=== PATIENT | male | born 1970 | race Caucasian/White ===

== ENCOUNTER 2018-12-24 18:43 | Observation (INO) | payer BC ==
[~2018-12-24] VITALS: Ht 188 cm; Wt 120.2 kg
--- OUTSIDE RECORDS SUMMARY | 2018-12-24 18:52 | XMS REPORT ---
Author Author [facility] Address Unknown Phone Unavailable Care Team Providers Care Hat And Cap Opener Name Role Phone Unavailable Unavailable Payers Payer Name Policy Type Policy Number Effective Date Expiration Date Problems This patient has no known problems. Allergies, Adverse Reactions, Alerts Allergy Name Allergy Type Status Severity Reaction(s) Onset Date Inactive Date Treating Clinician Comments No Known Allergies DA Active U 2016-03-13 00:00:00 Medications This patient has no known medications.
--- OUTSIDE RECORDS SUMMARY | 2018-12-24 18:52 | XMS REPORT | Clinical Summary ---
Author Author [facility] Organization [facility] Address Unknown Phone Unavailable Care Team Providers Care Electrical Line Worker Name Role Phone Johnnie Hernandez MD PCP Unavailable Allergies No Known Allergies Medications End Date Status Medication Sig Dispensed Refills Start Date Active HYDROmorphone (DILAUDID) Take 1 mg by 0 2 MG tablet mouth every 4 (four) hours as needed for Pain. Active Problems Problem Noted Date Hypertension 03/16/2016 Renal mass, left 03/14/2016 Family History Medical History Relation Name Comments Heart disease Paternal Grandfather Relation Name Status Comments Paternal Grandfather Social History Date Tobacco Use Types Packs/Day Years Used Never Smoker Smokeless Tobacco: Never Used Alcohol Use Drinks/Week oz/Week Comments Yes 6 Cans of 3.6 beer Sex Assigned at Date Recorded Not on file Industry Job Start Date Occupation Not on file Not on file Not on file Travel End Travel History Travel Start No recent travel history available. Last Filed Vital Signs Not on file Plan of Treatment Not on file Results Not on fileafter 12/23/2017 Insurance Payer Benefit Subscriber ID Type Phone Address Plan / Group [employer] xxxxxxxxxxxx PPO [phone] [address] POS/PPO/[place] [address] O Advance Directives For more information, please contact: [facility] [address] [place] [address] Date Inactivated Comments Code Status Date Activated 03/21/2016 3:13 PM Full Code 03/14/2016 11:51 PM This code status was determined by: Patient
[2018-12-24] MEDS ORDERED: SODIUM CHLORIDE 0.9% 1000ML 1,000 ML IV STA (19:22)
[2018-12-24 19:50] LABS: BASOPHILS # (AUTO) 0.1 (0.0-0.1); BASOPHILS % 0.7 % (0.0-1.0); EOSINOPHILS # (AUTO) 0.3 (0.0-0.4); EOSINOPHILS % 2.3 % (0.0-6.0); HEMATOCRIT 43.1 % (38.2-49.6); HEMOGLOBIN 15.2 g/dL (14.0-18.0); LYMPHOCYTES # (AUTO) 1.5 (1.0-3.2); LYMPHOCYTES % 13.1 % (18.0-39.1); MEAN CORPUSCULAR HEMOGLOBIN 30.9 pg (28-32); MEAN CORPUSCULAR HGB CONC 35.3 g/dL (31-35); MEAN CORPUSCULAR VOLUME 87.6 fL (81-99); MONOCYTES % 8.7 % (4.4-11.3); NEUTROPHILS # (AUTO) 8.6 (2.1-6.9); NEUTROPHILS % 74.8 % (38.7-80.0); PLATELET COUNT 206 x10e3/uL (140-360); RED BLOOD COUNT 4.92 x10e6/uL (4.3-5.7)
[2018-12-24 20:00] LABS: INR 1.02; PROTHROMBIN TIME 13.9 seconds (11.9-14.5)
[2018-12-24] MEDS ORDERED: ASPIRIN 81 MG CHEW TAB PO ONE (20:00)
[2018-12-24] MEDS ORDERED: LIDOCAINE VISC 2% SOLN 15 ML UDC PO ONE (20:00)
[2018-12-24] MEDS ORDERED: MAGNESIUM/ALUMINUM/SIMETHICONE 30 ML UDC PO ONE (20:00)
[2018-12-24] MEDS ORDERED: ONDANSETRON HCL INJ 2MG/ML 2ML 2 MG/ML VIAL IV ONE (20:00)
[2018-12-24 20:01] LABS: PARTIAL THROMBOPLASTIN TIME 34.7 seconds (23.8-35.5)
[2018-12-24 20:10] LABS: ALBUMIN/GLOBULIN RATIO 1.4 (0.8-2.0); ANION GAP 14.9 mmol/L (8-16); CALCIUM 9.7 mg/dL (8.4-10.2); CREATININE, SERUM 1.48 mg/dL (0.72-1.25); POTASSIUM 3.9 mmol/L (3.5-5.1)
[2018-12-24 20:17] LABS: CREATINE KINASE MB 1.1 ng/mL (0-5.0)
--- NOTE | 2018-12-24 20:30 | Diagnostic Imaging Report ---
Examination: Single AP view of the chest. COMPARISON: None. INDICATION: Chest pain DISCUSSION: Lines/tubes: None. Lungs: Lung volumes are low. No consolidation, pleural effusion, or pneumothorax. Pleura: There is no pleural effusion or pneumothorax. Heart and mediastinum: Cardiomediastinal contour and pulmonary vasculature are within normal limits for technique. Bones and soft tissues: No acute bony abnormalities. IMPRESSION: 1. No acute cardiopulmonary abnormalities. Signed by: Dr. Herminio Ley M.D. on 12/24/2018 8:27 PM
[2018-12-24] MEDS: BELLADONNA ALK/PHENOBARBITAL 5 ML UDC PO SCH (20:33)
--- NOTE | 2018-12-24 20:48 | Diagnostic Imaging Report ---
EXAMINATION: Right upper quadrant ultrasound CLINICAL INDICATION: Vomiting, right upper quadrant pain COMPARISON: None DISCUSSION: Transverse and longitudinal images of the right upper quadrant were obtained. The liver is increased in size measuring 17.5centimeters in length in the right midclavicular line and shows normal echogenicity. No focal masses are seen in the liver. There is no intrahepatic biliary dilatation. The common bile duct is normal in caliber, measuring 0.4 cm. the main portal vein is normal in caliber and measures 0.8 cm with normal hepatopetal flow. An echogenic, shadowing calculus is lodged in the gallbladder neck. Echogenic sludge throughout the body and fundus. The wall is thickened, measuring 0.6 cm, and the gallbladder itself is hydropic. Sonographic Rust sign is positive. The pancreas is obscured by overlying bowel gas. The right kidney measures 12.9 centimeters in length. There is normal renal cortical echogenicity and no hydronephrosis, mass or shadowing calculi. Abdominal aorta is nonaneurysmal. IVC is poorly visualized. No free fluid is seen. IMPRESSION: Cholelithiasis with sonographic findings compatible with acute cholecystitis in the setting of gallbladder hydrops. Signed by: Dr. Herminio Ley M.D. on 12/24/2018 8:44 PM
[2018-12-24] MEDS ORDERED: ONDANSETRON HCL INJ 2MG/ML 2ML 2 MG/ML VIAL IV STA (20:59)
[2018-12-24] MEDS ORDERED: MORPHINE SULFATE INJ 4 MG/ML INJ 1ML IV STA (20:59)
[2018-12-24] MEDS ORDERED: CEFTRIAXONE SOD 1 GM VIAL IV ONE (21:00)
[2018-12-24] MEDS ORDERED: SODIUM CHLORIDE 0.9% 1000ML 1,000 ML ONE (21:26)
[2018-12-24] MEDS ORDERED: SODIUM CHLORIDE 0.9% 50ML 50 ML ONE (21:27)
--- OUTSIDE RECORDS SUMMARY | 2018-12-24 22:00 | XMS REPORT | Clinical Summary ---
Author Author [facility] Organization [facility] Address Unknown Phone Unavailable Care Team Providers Care Chief Executive Officer Name Role Phone Johnnie Hernandez MD PCP [...] [employer] OS xxxxxxxxxxxx PPO [phone] [address] [place] [address] O Advance Directives For more information, please contact: [facility] [address] [place] [address] Date Inactivated Comments Code Status Date Activated 03/21/2016 3:13 PM Full Code 03/14/2016 11:51 PM This code status was determined by: Patient
[2018-12-24] MEDS ORDERED: MORPHINE SULFATE INJ 4 MG/ML INJ 1ML IV PRN (22:15)
--- NOTE | 2018-12-24 22:55 | NUR ---
Patient arrived to the unit via stretcher. received report from bassam torres nurse. call light within reach.
[2018-12-24 23:10] VITALS: BP 162/92
[2018-12-24 23:47] VITALS: BP 162/92
[2018-12-25] VITALS (7 sets, daily range): BP systolic 127–149; BP diastolic 74–88
--- NOTE | 2018-12-25 03:26 | Consultation ---
DATE OF CONSULTATION: 12/25/2018 HISTORY OF PRESENT ILLNESS: The patient is a 48-year-old male, who presents with complaints of epigastric abdominal pain. He says the pain started initially years ago, but it became worse yesterday, and he came to the emergency room. Evaluation revealed gallstones and findings suggestive of acute cholecystitis. The patient says the pain comes and goes. He has no nausea or vomiting at this time. No symptoms of jaundice. PAST MEDICAL HISTORY: Significant for previous nephrectomy for cancer. He also has previous cardiac ablation and has no cardiac symptoms at this time. MEDICATIONS: At home, there were no medications at home. ALLERGIES: HE HAS NO KNOWN ALLERGIES. FAMILY HISTORY: Noncontributory. SOCIAL HISTORY: The patient does not smoke cigarettes or drink alcohol. REVIEW OF SYSTEMS: As stated above. He has had no fever, no weight loss. PHYSICAL EXAMINATION: GENERAL: The patient is awake and alert, in no distress. VITAL SIGNS: Were normal. HEENT: Sclerae is not icteric. NECK: Supple. No masses. LUNGS: Equal breath sounds are clear bilaterally. CARDIAC: Regular rate and rhythm with no murmur. ABDOMEN: Soft. There was a slight epigastric tenderness. There is no mass. There were no signs of peritonitis. There is no organomegaly. EXTREMITIES: Have no edema. NEUROLOGIC: Grossly intact. LABORATORY DATA: White blood count is 11.4, hemoglobin and hematocrit are normal. Chemistries revealed normal liver function tests, mildly elevated creatinine 1.48. ASSESSMENT: 48-year-old male with findings suggestive of acute on chronic cholecystitis with cholelithiasis. He will benefit from cholecystectomy, at which point is schedule for later today. Procedure was explained to the patient including risks, benefits, and alternatives, he understands. He has had the opportunity to ask questions. He is aware of the possible need for open surgery. Thank you for asking me to see Mr. Guillen. MD SHAINA Rodriguez/SARINA /[id number]
--- NOTE | 2018-12-25 05:20 | NUR ---
H&P cc: abdominal pain HPI: 48yoM, PCP ??, developed abdominal pain right upper region for 1 day; some nausea/vomiting; no diarrhea. PMH: left RCC s/p left nephrectomy, cardiac arrhythmia s/p ablation PSHx: left nephrectomy, cardiac ablation Allergies; see emr Fh/SH; occ etoh; ; meds; see MAR ROS: no f/c/s/HANNA/cp/sob/skin rash/vision changes/back pain/leg pain v/s; revd PE: tired appearing anicteric ns1s2 mod bs soft ; right upper abdomen tender; +/- Rust's sign no e/t skin dry n. affect a&ox3; vyas lab/meds; revd A/P: 48yoM Acute cholecystitis JIM Obesity BMI 34.0 Hx RCC PLAN IVF; IV abx; Sx consult hemoglobin a1c/lipids scd; pepcid Dispo Alistair Carlin MD, PhD
[2018-12-25] MEDS ORDERED: SODIUM CHLORIDE 0.9% 1000ML 1,000 ML IV SCH (06:30)
[2018-12-25] MEDS ORDERED: MORPHINE SULFATE INJ 4 MG/ML INJ 1ML IV PRN (06:30)
--- NOTE | 2018-12-25 06:35 | NUR ---
Received orders from Dr. Carlin to give IV fluids at 20 mls/hr and morphine 0.5 mg, q4h. Addendum: 12/25/18 at 0656 by Justine Arredondo RN debbie not morphine
[2018-12-25] MEDS: ONDANSETRON HCL INJ 2MG/ML 2ML 2 MG/ML VIAL IV PRN ×2 (07:19→13:03)
[2018-12-25] MEDS: HYDROMORPHONE 1MG/1ML INJ IV PRN ×4 (07:23→23:53)
--- NOTE | 2018-12-25 07:38 | NUR ---
GAVE REPORT TO ONCOMING NURSE. CALL LIGHT WITHIN REACH. PATIENT IN BED.
[2018-12-25] MEDS: BELLADONNA ALK/PHENOBARBITAL 5 ML UDC PO SCH ×3 (08:56→20:23)
[2018-12-25 09:07] LABS: CHOL/HDL RATIO 2.9 (3.9-4.7)
[2018-12-25] MEDS: FAMOTIDINE 20 MG/2 ML VIAL IV SCH ×2 (09:34→17:00)
--- NOTE | 2018-12-25 09:40 | NUR ---
Patient taken to OR at this time by stretcher. Family at the bedside. Patient A&Ox3. No distress.
[2018-12-25] MEDS ORDERED: BUPIVACAINE HCL 0.5% INJ 30 ML VIAL INJ ONE (09:47)
[2018-12-25] MEDS ORDERED: HYDROCODONE/APAP 7.5MG-325MG 1 EA TAB PO PRN (11:15)
[2018-12-25] MEDS ORDERED: ONDANSETRON HCL INJ 2MG/ML 2ML 2 MG/ML VIAL IV PRN (11:15)
--- NOTE | 2018-12-25 12:02 | NUR ---
Patient returned from the OR at this time. Patient is arousable by voice. Patient transferred to bed with standby assist. Patient states no pain at this time. Call dejesus within reach. Bed is low and locked. Family at the bedside. Provided education regarding diet, walking, and passing gas. Patient and family verbalized understanding.
--- NOTE | 2018-12-25 12:07 | Operative Report ---
DATE OF PROCEDURE: 12/25/2018 SURGEON: Herminio Wilson MD PREOPERATIVE DIAGNOSES: Acute cholecystitis, cholelithiasis. POSTOPERATIVE DIAGNOSES: Acute cholecystitis, cholelithiasis. PROCEDURES: Diagnostic laparoscopy, laparoscopic cholecystectomy. MEAT TEAM LEAD: None. ANESTHESIA: General endotracheal. INDICATIONS AND FINDINGS: The patient is a 48-year-old male, admitted to the hospital with complaints of severe epigastric abdominal pain. Workup revealed gallstones. Surgery based on gallbladder was very distended and edematous containing purulence sludge. There was a large stone impacting the gallbladder neck. Cystic duct was about 3 mm in diameter. Common bile duct was about 6 mm in diameter. Liver, stomach, lower abdomen all appeared normal. TECHNIQUE: After adequate general endotracheal anesthesia, the patient in supine position, the abdomen was prepped and draped in a sterile fashion with ChloraPrep solution. Skin in the umbilicus was infiltrated with 0.5% Marcaine. Incision made in the umbilicus. Abdominal wall was elevated and Veress needle was introduced. Pneumoperitoneum was then created. A 10 mm trocar and cannula was then passed through the umbilical wound. Laparoscopic camera was introduced. Initial laparoscopy revealed gallbladder to be very distended. Liver, stomach, lower abdomen all appeared normal. A 10 mm trocar and cannula was placed in epigastrium. Two 5 mm trocars and cannulas were placed in the right upper quadrant, these were placed under direct vision. Gallbladder was tense, it was decompressed with a needle, contained some sludge which was purulent. Fundus of the gallbladder was grasped, retracted superiorly. There was a large stone impacting the gallbladder neck. The neck of the gallbladder was grasped. Peritoneum over the neck of the gallbladder was incised. The gallbladder cystic duct junction was dissected free. Cystic artery was also dissected free. The neck of the gallbladder completely dissected free. The cystic artery was divided between hemoclips close to the gallbladder. Cystic duct was also divided between hemoclips with three clips being left on the common bile duct side. The gallbladder was dissected free from the liver using scissors and electrocautery. Once it was entirely free, it was placed into an Endopouch and brought through the epigastric cannula contained at least one large stone. Gallbladder bed was inspected for hemostasis which was seen to be adequate. It was irrigated with saline. All fluid aspirated, inspected once again for hemostasis, which was seen to be adequate. Instruments and cannulas were then removed. Pneumoperitoneum was evacuated. Wounds were then closed. Fascia in the umbilical and epigastric wound closed with 0 Vicryl. Skin to all wounds closed with roseanne. Sterile dressings applied to each wound. The patient tolerated the procedure well. Estimated blood loss was 20 mL. There were no complications. All counts were correct. The patient was taken to the recovery room in satisfactory condition. MD SHAINA Rodriguez/SARINA /[id number]
[2018-12-25] MEDS: SODIUM CHLORIDE 0.9% 1000ML 1,000 ML IV SCH (12:27)
[2018-12-25] MEDS ORDERED: CEFTRIAXONE SOD 2 GM/NS 100 ML 100 ML IV SCH (12:30)
[2018-12-25] MEDS ORDERED: SEVOFLURANE INHAL SOLN 250 ML PEN BTL ONE (17:34)
[2018-12-25] MEDS ORDERED: DEXAMETHASONE SOD PHOS INJ 4 MG/ML VIAL ONE (17:34)
[2018-12-25] MEDS ORDERED: LIDOCAINE HCL 2% LOCAL INJ 5 ML SDV VIAL INJ ONE (17:34)
[2018-12-25] MEDS ORDERED: ACETAMINOPHEN 1000 MG/100 ML IV ONE (17:34)
[2018-12-25] MEDS ORDERED: PROPOFOL IV EMULSION 10 MG/ML 20 ML VIAL ONE (17:34)
[2018-12-25] MEDS ORDERED: ONDANSETRON HCL INJ 2MG/ML 2ML 2 MG/ML VIAL ONE (17:34)
--- NOTE | 2018-12-25 17:46 | NUR ---
Patient called and stated, "My muscles around my neck feel tight." No side effects to [place] involving muscular reaction noted per pharmacy education. Patient changed position and experienced some relief. Patient asking for additional pain medications, states pain is 7/10. Medication administered per Emar, Dilaudid 0.5 mg.
[2018-12-25] MEDS ORDERED: KETAMINE HCL INJ 50 MG/ML 10 ML VIAL ONE (18:18)
[2018-12-25] MEDS ORDERED: MIDAZOLAM HCL 2 MG/2 ML VIAL ONE (18:18)
[2018-12-25] MEDS ORDERED: FENTANYL CITRATE/PF 100MCG/2 ML INJ ONE (18:18)
--- NOTE | 2018-12-25 19:10 | NUR ---
RECEIVED REPORT FROM PREVIOUS NURSE. CALL LIGHT WITHIN REACH. PATIENT ASLEEP IN BED. SCD'S ATTACHED AND PATIENT IV IS RUNNING WITH NO PROBLEMS.
--- NOTE | 2018-12-25 19:30 | NUR ---
Report given to oncoming nurse. Patient is sleeping with no signs of distress. SCD's in place. PIV infusing NS at 100. Call dejesus within reach. Bed is low and locked.
[2018-12-26] VITALS: BP 120/78
[2018-12-26] MEDS: SODIUM CHLORIDE 0.9% 1000ML 1,000 ML IV SCH (00:02)
[2018-12-26 04:00] VITALS: BP 123/71
[2018-12-26 05:21] LABS: BASOPHILS % 0.4 % (0.0-1.0); EOSINOPHILS # (AUTO) 0.1 (0.0-0.4); EOSINOPHILS % 0.9 % (0.0-6.0); HEMATOCRIT 37.8 % (38.2-49.6); HEMOGLOBIN 13.2 g/dL (14.0-18.0); LYMPHOCYTES % 10.7 % (18.0-39.1); MEAN CORPUSCULAR HEMOGLOBIN 31.2 pg (28-32); MEAN CORPUSCULAR HGB CONC 34.9 g/dL (31-35); MEAN CORPUSCULAR VOLUME 89.4 fL (81-99); MONOCYTES # (AUTO) 0.9 (0.2-0.8); MONOCYTES % 9.3 % (4.4-11.3); NEUTROPHILS # (AUTO) 7.6 (2.1-6.9); NEUTROPHILS % 78.2 % (38.7-80.0); PLATELET COUNT 178 x10e3/uL (140-360); RED BLOOD COUNT 4.23 x10e6/uL (4.3-5.7); RED CELL DISTRIBUTION WIDTH 12.7 % (11.7-14.4)
[2018-12-26 05:44] LABS: ALANINE AMINOTRANSFERASE 18 IU/L (0-55); ALBUMIN 2.9 g/dL (3.5-5.0); ALKALINE PHOSPHATASE 56 IU/L (40-150); BLOOD UREA NITROGEN 14 mg/dL (7-26); BUN/CREATININE RATIO 11 (6-25); CARBON DIOXIDE 25 mmol/L (22-29); CHLORIDE 106 mmol/L (98-107); CREATININE, SERUM 1.23 mg/dL (0.72-1.25); EST GLOMERULAR FILTRATION RATE > 60 ML/MIN (60-); GLUCOSE 116 mg/dL (74-118); SODIUM 138 mmol/L (136-145)
--- NOTE | 2018-12-26 06:38 | NUR ---
D/C summary Principal Dx: Acute cholecystitis JIM Secondary Dx: Obesity BMI 34.0 Hx RCC PLAN IVF; IV abx; Sx consult hemoglobin a1c/lipids scd; pepcid Dispo 12/26 s/p lap rene; bowel reg. Hba1c/LDL 4.6 d/c home f/u 1 week stable d/c>35mins Alistair Carlin MD, PhD
[2018-12-26] MEDS ORDERED: SENNOSIDES8.6 MG PO (06:51)
[2018-12-26] MEDS ORDERED: ULTRAM 50MG50 MG PO (06:51)
[2018-12-26] MEDS ORDERED: COLACE100 MG PO (06:51)
[2018-12-26] MEDS ORDERED: ZOFRAN4 MG PO (06:51)
[2018-12-26] MEDS ORDERED: KEFLEX500 MG PO (06:51)
--- NOTE | 2018-12-26 07:27 | NUR ---
GAVE REPORT TO ONCOMING NURSE. CALL LIGHT WITHIN REACH. PATIENT IN BED. DRESSING WAS CHANGED.
[2018-12-26 08:00] VITALS: BP 133/83
[2018-12-26 08:20] VITALS: BP 133/83
[2018-12-26] MEDS: BELLADONNA ALK/PHENOBARBITAL 5 ML UDC PO SCH (08:20)
[2018-12-26] MEDS: FAMOTIDINE 20 MG/2 ML VIAL IV SCH (08:20)
--- NOTE | 2018-12-26 08:20 | NUR ---
patient alert and oriented. discharge instructions given at this time, patient verbalized understanding. IV discontinued, catheter in tact and small dressing applied. Patient refusing wheelchair assistance but will ambulate to personal auto for to drive home.
[2018-12-26] MEDS ORDERED: SENNOSIDES 8.6 MG TAB PO SCH (09:00)
== END 2018-12-26 08:40 | disposition home or self-care (01) ==
LOC: ER 18:43 → ERHOLD 21:57 → MED/SURG2 22:40
PROVIDERS: ADMIT Internal Medicine; ATTEND Internal Medicine
DX: K80.00 Calculus of gallbladder with acute cholecystitis without obstruction (principal); N18.9 Chronic kidney disease, unspecified; Z90.5 Acquired absence of kidney; Z85.528 Personal history of other malignant neoplasm of kidney; N17.9 Acute kidney failure, unspecified; E66.9 Obesity, unspecified; Z68.34 Body mass index [BMI] 34.0-34.9, adult
CPT/HCPCS: 36415 ×3; 47562; 71045; 76705; 80053 ×2; 80061; 82150; 82550; 82553; 83036; 83690; 83880; 84484; 85025 ×2; 85610; 85730; 88304; 93005; 96374; 99284; G0378 ×3; J0131; J0696 ×2; J1100; J1170 ×2; J2001; J2250; J2270 ×2; J2405 ×2; J2704; J3010; J7030 ×2